=== PATIENT | male | born 1985 | race African-American/Black ===

== ENCOUNTER 2018-05-06 14:22 | Emergency (ER) | payer SELFPAY ==
[2018-05-06] MEDS: HYDROcodone/APAP 5/325MG 1 TAB TABLET PO (14:56)
== END 2018-05-06 15:40 | disposition home or self-care (01) ==
LOC: ER 14:22
DX: S49.91XA Unspecified injury of right shoulder and upper arm, initial encounter (principal); V09.9XXA Pedestrian injured in unspecified transport accident, initial encounter; Y93.89 Activity, other specified; Y92.89 Other specified places as the place of occurrence of the external cause; Y99.8 Other external cause status
CPT/HCPCS: 73000; 99284